=== PATIENT | male | born 1960 | race African-American/Black ===

== ENCOUNTER 2021-09-13 14:04 | Emergency (ER) | payer OTHER ==
[2021-09-13 14:38] VITALS: BP 184/131; PULSE 75; TEMP 98.1; BMI 15.9
[2021-09-13 16:40] LABS: EOS % 4.9 % (0-4.5); HEMATOCRIT 49.3 % (35.4-49); HEMOGLOBIN 15.6 GM/dL (11.7-16.9); LYMPH % 30.7 % (8-40); MCH 22.8 pg (25.7-33.7); MCHC 31.6 g/dl (32.0-35.9); MEAN CELL VOLUME 72.2 fl (80-96); MEAN PLT VOLUME 7.4 fl (7.5-11.1); NEUT % 53.4 % (42.8-82.8); PLATELET COUNT 208 10^3/uL (134-434); RBC 6.83 M/mm3 (4.00-5.60); RDW 15.4 % (11.9-15.9); WHITE BLOOD COUNT 7.1 K/mm3 (4.0-10.0)
[2021-09-13 16:41] LABS: URINE APPEARANCE CLEAR; URINE BILIRUBIN NEGATIVE (NEGATIVE); URINE COLOR YELLOW; URINE GLUCOSE (UA) NEGATIVE (NEGATIVE); URINE KETONE TRACE (NEGATIVE); URINE LEUK ESTERASE NEGATIVE (NEGATIVE); URINE NITRITE NEGATIVE (NEGATIVE); URINE PROTEIN NEGATIVE (NEGATIVE); URINE UROBILINOGEN 0.2 mg/dL (0.2-1.0)
[2021-09-13 16:50] LABS: URINE BARBITURATES NEGATIVE (NEGATIVE); URINE BENZODIAZEPINES NEGATIVE (NEGATIVE)
[2021-09-13 16:51] LABS: METHADONE, UR NEGATIVE (NEGATIVE); OPIATES, URI NEGATIVE (NEGATIVE); URINE AMPHETAMINES NEGATIVE (NEGATIVE)
[2021-09-13 16:53] LABS: COCAINE, UR NEGATIVE (NEGATIVE); PHENCYCLIDINE,URINE POSITIVE (NEGATIVE)
[2021-09-13 16:58] LABS: CALCIUM 9.5 mg/dL (8.5-10.1)
[2021-09-13 16:59] LABS: BLOOD UREA NITROGEN 16.2 mg/dL (7-18)
[2021-09-13 17:03] LABS: BILIRUBIN,TOTAL 0.7 mg/dL (0.2-1); TOT PROT 7.8 g/dl (6.4-8.2)
== END 2021-09-13 17:15 | disposition left against medical advice (07) ==
LOC: JER 14:04
DX: R06.02 Shortness of breath (principal); R00.2 Palpitations
CPT/HCPCS: 36415; 71046-TC-FY; 80053; 80307; 81003; 84443; 84484; 85025; 85379; 87086; 93005; 93010; 99283-25; C9803-CS; U0003; U0005